=== PATIENT | female | born 1970 | race Caucasian/White ===

== ENCOUNTER 2022-05-04 23:41 | Emergency (ER) | payer MEDICARE, MEDICAID ==
[~2022-05-04 23:41] MED LIST: ADV100INH INH; BACL10TA2 PO; BENA25TA4 PO; COLA100C5 PO; CYCL-707 PO; DERMATRAN TOP; DOXE25CA PO; EXCETAB80 PO; GABA100C PO; GLUCTAB6 PO; IBUP600T26 PO; KLON1TAB PO; LATU20TA PO; LIDO1DIS2 TD; MIRA3350 PO; MORP15TASA PO; MULTTAB24 PO; OXYC-208 PO; PROZ20CA11 PO; PROZ40CA PO; ROPI1TA PO; SAVE50TA PO; SERO150T2 PO; SERO50TA PO; SING5CHW PO; TIZA4CAP PO; TOPA50TA PO; TRAZ-252 PO; VENTAER INH; VITA100037 PO; XARE15TA PO; XOPEAER IN; [UNRECOGNIZED DRUG - CODE] PO; [UNRECOGNIZED DRUG - OTHER] PO
[2022-05-05] MEDS ORDERED: MIDAZOLAM INJ 2MG/2ML VIAL (J2250 PER 1MG) IM ONE (00:25)
[2022-05-05] MEDS ORDERED: OLANZapine INTRAMUSCULAR 10MG VIAL IM ONE ×2 (00:25→09:50)
[2022-05-05 01:02] LABS: HEMATOCRIT 38.4 % (36.0-47.0); HEMOGLOBIN 11.3 g/dl (12.0-15.5); MEAN CORPUSCULAR HEMOGLOBIN 24.8 pg (27.0-33.0); MEAN CORPUSCULAR HGB CONC 29.4 g/dl (32.0-36.5); MEAN CORPUSCULAR VOLUME 84.4 fl (80.0-96.0); PLATELET COUNT, AUTOMATED 464 10^3/uL (150-450); RED BLOOD COUNT 4.55 10^6/uL (4.00-5.40); WHITE BLOOD COUNT 13.5 10^3/uL (4.0-10.0)
[2022-05-05 01:30] LABS: HCG, SERUM QUALITATIVE NEGATIVE (NEGATIVE)
[2022-05-05 01:36] LABS: RSV AMPLIFICATION NEGATIVE (NEGATIVE)
[2022-05-05 01:48] LABS: ACETAMINOPHEN LEVEL < 2.0 UG/ML (10.0-30.0); ALBUMIN 4.5 GM/DL (3.2-5.2); ALT/SGPT 27 U/L (12-78); BILIRUBIN,DIRECT 0.2 MG/DL (0.0-0.2); BILIRUBIN,TOTAL 0.4 MG/DL (0.2-1.0); BLOOD UREA NITROGEN 12 MG/DL (7-18); CALCIUM LEVEL 9.7 MG/DL (8.5-10.1); CARBON DIOXIDE LEVEL 20 MEQ/L (21-32); CHLORIDE LEVEL 103 MEQ/L (98-107); CREATININE FOR GFR 1.07 MG/DL (0.55-1.30); ETHYL ALCOHOL (ETHANOL) 0.003 % (0.000-0.010); GLOMERULAR FILTRATION RATE 57.6 (>51); GLUCOSE, FASTING 155 MG/DL (70-100); POTASSIUM SERUM 3.7 MEQ/L (3.5-5.1); SALICYLATE LEVEL 1.8 MG/DL (5.0-30.0); SODIUM LEVEL 139 MEQ/L (136-145); TOTAL PROTEIN 8.3 GM/DL (6.4-8.2)
[2022-05-05 03:00] LABS: AMPHETAMINES LEVEL URINE POSITIVE (NEGATIVE); BARBITURATES URINE NEGATIVE (NEGATIVE); BENZODIAZEPINES URINE POSITIVE (NEGATIVE); CANNABINOIDS URINE POSITIVE (NEGATIVE); COCAINE METABOLITE URINE NEGATIVE (NEGATIVE); METHADONE URINE NEGATIVE (NEGATIVE); OPIATES URINE NEGATIVE (NEGATIVE); PHENCYCLIDINE URINE NEGATIVE (NEGATIVE)
[2022-05-05] MEDS ORDERED: diphenhydrAMINE 50MG/ML VIAL (J1200) IM ONE (09:50)
[2022-05-05] MEDS ORDERED: TOPA100T12 PO (10:18)
[2022-05-05] MEDS ORDERED: OLANZapine ORAL DISINTEGRATING TAB 5MG PO ONE (10:30)
[2022-05-05] MEDS ORDERED: diphenhydrAMINE 50MG CAP PO ONE (10:30)
[2022-05-05] MEDS ORDERED: IBUPROFEN 600MG TAB PO ONE (12:30)
[2022-05-05] MEDS ORDERED: ASPI81TA26 PO (13:39)
[2022-05-05] MEDS ORDERED: CYCL-707 PO (13:39)
[2022-05-05] MEDS ORDERED: IBUP1TAB6 PO (13:39)
[2022-05-05] MEDS ORDERED: FERR1TAB8 PO (13:39)
[2022-05-05] MEDS ORDERED: THERTAB21 PO (13:39)
[2022-05-05] MEDS ORDERED: ZOLO100T PO (13:39)
[2022-05-05] MEDS ORDERED: LEVA12INH NEB (13:39)
[2022-05-05] MEDS ORDERED: COMMENTS (13:39)
[2022-05-05] MEDS ORDERED: HOME MED LIST COMPLETE! XX SCH (13:45)
[2022-05-06] MEDS: TOPIRAMATE (TopAMAX) 100 MG TAB PO SCH (10:05)
[2022-05-06] MEDS: FERROUS SULFATE 325MG TAB PO SCH (10:05)
[2022-05-06] MEDS: ASPIRIN 81 MG CHEW TABLET PO SCH (10:05)
[2022-05-06] MEDS: SERTRALINE 100 MG TAB PO SCH (10:06)
[2022-05-06] MEDS ORDERED: IBUPROFEN 600MG TAB PO ONE (10:25)
[2022-05-07] MEDS: ASPIRIN 81 MG CHEW TABLET PO SCH (10:15)
[2022-05-07] MEDS: FERROUS SULFATE 325MG TAB PO SCH (10:15)
[2022-05-07] MEDS: TOPIRAMATE (TopAMAX) 100 MG TAB PO SCH (10:16)
[2022-05-07] MEDS: SERTRALINE 100 MG TAB PO SCH (10:16)
[2022-05-07] MEDS ORDERED: IBUPROFEN 600MG TAB PO ONE (13:05)
[2022-05-08] MEDS ORDERED: IBUPROFEN 600MG TAB PO ONE (08:20)
[2022-05-08] MEDS: ASPIRIN 81 MG CHEW TABLET PO SCH (08:50)
[2022-05-08] MEDS: SERTRALINE 100 MG TAB PO SCH (08:51)
[2022-05-08] MEDS: TOPIRAMATE (TopAMAX) 100 MG TAB PO SCH (08:51)
[2022-05-08] MEDS: FERROUS SULFATE 325MG TAB PO SCH (08:51)
[2022-05-08 17:32] VITALS: BP 139/85
== END 2022-05-08 17:46 | disposition home or self-care (01) ==
LOC: M ED 23:41
DX: F15.159 Other stimulant abuse with stimulant-induced psychotic disorder, unspecified (principal); J45.909 Unspecified asthma, uncomplicated; Z88.8 Allergy status to other drugs, medicaments and biological substances
CPT/HCPCS: 80048; 80076; 80143; 80307; 81000; 81015; 82077; 84443; 84703; 85027; 87631; 96372; 99285; J2250